=== PATIENT | male | born 1985 | race Caucasian/White ===

== ENCOUNTER 2017-01-04 00:10 | Emergency (ER) | payer SELFPAY ==
[2017-01-04] MEDS ORDERED: PENICILLIN G BENZATHINE 1,200,000 UNITS INJ IM ONE (01:10)
[2017-01-04] MEDS ORDERED: PHARMACY KEY 1 EACH EACH MC ONE (01:32)
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
[2017-01-04 01:44] LABS: BASOPHILS % 0.3 (0.0-1.5); EOSINOPHILS % 0.3 % (0.0-6.8); MEAN CORPUSCULAR HEMOGLOBIN 31.5 pg (28.0-34.0); MEAN CORPUSCULAR VOLUME 90.4 fl (80.0-100.0); NEUTROPHILS # 15.5 # k/uL (1.4-7.7)
[2017-01-04] MEDS ORDERED: 0.9 % SODIUM CHLORIDE 1,000 ML IV ONE (02:13)
[2017-01-04 04:43] VITALS: BP 134/43
[2017-01-04 06:04] LABS: APPEARANCE,URINE CLEAR (CLEAR); COLOR,URINE YELLOW (YELLOW); OCCULT BLOOD,URINE NEGATIVE (NEGATIVE); PH URINE 5.5 (5.0 - 8.0); UROBILINOGEN URINE 0.2 Eu (0.2-1.0)
[2017-01-04 06:06] LABS: AMPHETAMINE NON NEGATIVE ng/mL (<1000); CANNABINOIDS NON NEGATIVE ng/mL (< 50); COCAINE NEGATIVE ng/mL (<300); METHAMPHETAMINE NON NEGATIVE ng/mL (<1000); METHYLENEDIOXYMETHAMPHETAMINE NON NEGATIVE ng/mL (<500); OPIATES NEGATIVE ng/mL (<300)
[2017-01-04 06:07] LABS: BARBITURATES NEGATIVE ng/mL (<300)
--- NOTE | 2017-01-04 07:13 | Diagnostic Imaging Report ---
[facility] [id number] [facility].[address] [id number] Report Submission Date: Jan 04, 2017 2:26:55 AM CDT Patient Study Name: LUCRETIA HINSON Date: Jan 04, 2017 2:04:14 AM CDT Modality Type: CR Gender: M Description: CHEST : 81 Institution: [facility] Physician: LY NIEVES ([employer]) - ER Ap portable upright radiographs of the chest Clinical history: Coughing episodes Technique: anterior /posterior portable upright Findings: The lung zuleta are clear. Lung zuleta are hyperinflated. The heart and mediastinal structures are normal. The bony thorax is unremarkable. No pneumothorax or pleural effusion is seen. Impression: Hyperinflation No acute pulmonary disease Electronically signed on Jan 04, 2017 2:26:55 AM CDT by: Wolf RAUSCH
== END 2017-01-04 04:40 | disposition home or self-care (01) ==
LOC: ED 00:10
DX: A53.9 Syphilis, unspecified (principal); R82.2 Biliuria; E86.0 Dehydration; D72.820 Lymphocytosis (symptomatic); F15.10 Other stimulant abuse, uncomplicated
CPT/HCPCS: 71010; 80053; 80377; 81002; 85025; 87040; J7030; 96360; 99284; G0481; S1016